=== PATIENT | female | born 1950 | race Caucasian/White ===

== ENCOUNTER → 2016-11-22 | Day surgery (SDC) | payer MEDICARE, BC ==
[~2016-11-22] MED LIST: Lactated Ringers 1,000 ML IV SCH; Propofol 200 MG/20 ML SDV IV ONE
[2016-11-22 09:43] LABS: CHLORIDE,CL 102 mEq/L (98-106); SODIUM,NA 140 mEq/L (136-145)
[2016-11-22 10:54] VITALS: BP 120/64
--- NOTE | 2016-11-25 07:54 | OR ---
DATE OF OPERATION: 11/22/2016 PREOPERATIVE DIAGNOSIS: FAMILY HISTORY OF COLON CANCER. POSTOPERATIVE DIAGNOSIS: FAMILY HISTORY OF COLON CANCER. SURGEON: Broderick Pedersen MD PROCEDURE: FULL-LENGTH COLONOSCOPY ANESTHESIA: BARREL TURNER due to history of tortuous colon and difficulty with sedation. COMPLICATIONS: None. SPECIMEN: None. FINDINGS: 1. Normal full length colonoscopy. 2. Mild sigmoid diverticulosis. RECOMMENDATIONS: Follow up colonoscopy every 5 years. INDICATIONS: The patient has a family history of colon cancer. She is due for a five year followup scope. DESCRIPTION OF PROCEDURE: The patient was prepped and draped, placed in the left lateral decubitus position. A lubricated Olympus colonoscope was inserted and relatively easily advanced to the cecum. The patient was very tortuous but simple past. We were able to directly visualize the ileocecal valve and appendiceal orifice. The bowel prep was adequate. Upon withdrawal, throughout the entire length of the colon, I found no signs of any polyps, mass, ulceration, or bleeding sites. No vascular abnormalities or signs of colitis. There were scattered diverticula in the left colon from just past the splenic flexure, down to the rectosigmoid junction, very mild in severity without any inflammatory change. The rectal vault was unremarkable. Retroflexion scope in the rectum showed no anal lesions. Air was then suctioned, and scope was removed without complication. KATE/GILLIAN /[id number]
== END ==
LOC: CC.SDS 09:06
PROVIDERS: ATTEND Family Medicine
DX: Z12.11 Encounter for screening for malignant neoplasm of colon (principal); K57.30 Diverticulosis of large intestine without perforation or abscess without bleeding; Z80.0 Family history of malignant neoplasm of digestive organs; I10 Essential (primary) hypertension; Z79.82 Long term (current) use of aspirin; Z79.899 Other long term (current) drug therapy
CPT/HCPCS: 36415; 80053; 80061; 81001; 84443; 85025; G0105; J2704; J7120; 00810

== ENCOUNTER → 2021-11-09 | Day surgery (SDC) | payer MEDICARE, BC ==
[~2021-11-09] MED LIST changes: -Lactated Ringers 1,000 ML IV SCH; -Propofol 200 MG/20 ML SDV IV ONE; +Propofol 200 MG/20 ML SDV ONE; +fentaNYL 100 MCG/2 ML SDV ONE
[2021-11-09] MEDS: Lactated Ringers 1,000 ML IV SCH (09:28)
[2021-11-09 11:46] VITALS: BP 132/74; PULSE 54
== END ==
LOC: CC.SDS 09:04
PROVIDERS: ATTEND Family Medicine
DX: Z12.11 Encounter for screening for malignant neoplasm of colon (principal); K57.30 Diverticulosis of large intestine without perforation or abscess without bleeding; I10 Essential (primary) hypertension; Z79.899 Other long term (current) drug therapy; Z80.0 Family history of malignant neoplasm of digestive organs
CPT/HCPCS: J7120